=== PATIENT | female | born 1960 | race Caucasian/White ===

== ENCOUNTER 2016-07-07 21:05 | Inpatient (IN) | payer MEDICAID ==
[2016-07-07] MEDS ORDERED: DUONEB INH ONE ×4 (21:38→23:26)
[2016-07-07] MEDS ORDERED: METHYLPRED SOD SUCC 125 MG/2 ML VIAL ONE (21:42)
[2016-07-07] MEDS ORDERED: CEFTRIAXONE 1 GM VIAL ONE (22:47)
[2016-07-07] MEDS ORDERED: SODIUM CHLORIDE 0.9% 100 ML IV ONE (22:48)
[2016-07-08] VITALS (13 sets, daily range): BP systolic 98–144; RESP 16–23; TEMP 96.8–98.3; Wt 80.9 kg
[2016-07-08] MEDS ORDERED: GABAPENTIN 400 MG CAP PO PRN (00:15)
[2016-07-08] MEDS ORDERED: SALINE FLUSH 10 ML FLUSH PRN (00:15)
[2016-07-08] MEDS: METHYLPRED SOD SUCC 125 MG/2 ML VIAL IV SCH ×4 (00:15→23:34)
[2016-07-08] MEDS ORDERED: DOCUSATE SOD 100 MG CAP PO PRN (00:15)
[2016-07-08] MEDS ORDERED: DEXTROSE 50% SYRINGE 50 ML IV PRN (00:15)
[2016-07-08] MEDS ORDERED: GLUCAGON 1 MG VIAL IM PRN (00:15)
[2016-07-08] MEDS: SALINE FLUSH 10 ML FLUSH SCH ×3 (01:20→20:00)
[2016-07-08] MEDS: MDI-SPIRIVA 5 DOSES INH SCH ×3 (05:30→08:37)
[2016-07-08] MEDS: DUONEB INH SCH ×5 (05:30→18:22)
[2016-07-08] MEDS: LEVOTHYROXINE 0.05 MG TAB PO SCH (05:35)
[2016-07-08] MEDS: SODIUM CHLORIDE 0.9% FLUSH BAG 500 ML IV SCH ×2 (06:00→06:13)
[2016-07-08] MEDS: BUMETANIDE 1 MG TAB PO SCH (08:29)
[2016-07-08] MEDS: ESCITALOPRAM 10 MG TAB PO SCH (08:29)
[2016-07-09] VITALS (11 sets, daily range): BP systolic 112–158; RESP 16–20; TEMP 97.1–98.6
[2016-07-09] MEDS: DUONEB INH SCH ×7 (00:11→23:30)
[2016-07-09] MEDS: LEVOTHYROXINE 0.05 MG TAB PO SCH (05:36)
[2016-07-09] MEDS: SODIUM CHLORIDE 0.9% FLUSH BAG 500 ML IV SCH ×2 (05:36)
[2016-07-09] MEDS: MDI-SPIRIVA 5 DOSES INH SCH (08:28)
[2016-07-09] MEDS: ESCITALOPRAM 10 MG TAB PO SCH (08:48)
[2016-07-09] MEDS: METHYLPRED SOD SUCC 125 MG/2 ML VIAL IV SCH ×3 (08:48→23:36)
[2016-07-09] MEDS: BUMETANIDE 1 MG TAB PO SCH (08:48)
[2016-07-09] MEDS: SALINE FLUSH 10 ML FLUSH SCH ×2 (08:49→20:29)
[2016-07-09] MEDS: ENOXAPARIN 40 MG/0.4 ML SYR SUBQ SCH (13:34)
[2016-07-09] MEDS: BUMETANIDE 1 MG/4 ML VIAL IV SCH (16:55)
[2016-07-09] MEDS: NEB-BUDESONIDE 0.5 MG INH SCH (20:08)
[2016-07-09] MEDS: NEB-BROVANA 15 MCG/2 ML INH SCH (20:08)
[2016-07-09] MEDS ORDERED: ACETAMINOPHEN 325 MG TAB PO PRN (20:15)
[2016-07-09] MEDS: FAMOTIDINE 20 MG TAB PO SCH (20:28)
[2016-07-09] MEDS: Atorvastatin 10 MG TAB PO SCH (20:28)
[2016-07-09] MEDS: DOXYCYCLINE 100 MG TAB PO SCH (20:29)
[2016-07-09] MEDS ORDERED: LEVEMIR INSULIN SUBQ SCH (21:00)
[2016-07-10] VITALS (9 sets, daily range): BP systolic 102–124; RESP 16–22; TEMP 96.6–97.8
[2016-07-10] MEDS: DUONEB INH SCH ×6 (03:50→22:55)
[2016-07-10] MEDS: SODIUM CHLORIDE 0.9% FLUSH BAG 500 ML IV SCH ×2 (05:12)
[2016-07-10] MEDS: LEVOTHYROXINE 0.05 MG TAB PO SCH (06:06)
[2016-07-10] MEDS: NEB-BROVANA 15 MCG/2 ML INH SCH ×2 (08:04→19:05)
[2016-07-10] MEDS: NEB-BUDESONIDE 0.5 MG INH SCH ×2 (08:04→19:05)
[2016-07-10] MEDS: SALINE FLUSH 10 ML FLUSH SCH ×2 (08:18→20:08)
[2016-07-10] MEDS: METHYLPRED SOD SUCC 125 MG/2 ML VIAL IV SCH ×3 (08:18→23:56)
[2016-07-10] MEDS: ESCITALOPRAM 10 MG TAB PO SCH (08:19)
[2016-07-10] MEDS: FAMOTIDINE 20 MG TAB PO SCH ×2 (08:19→20:08)
[2016-07-10] MEDS: DOXYCYCLINE 100 MG TAB PO SCH ×2 (08:19→20:08)
[2016-07-10] MEDS: BUMETANIDE 1 MG/4 ML VIAL IV SCH ×2 (08:19→16:20)
[2016-07-10] MEDS: ENOXAPARIN 40 MG/0.4 ML SYR SUBQ SCH (08:19)
[2016-07-10] MEDS: MDI-SPIRIVA 5 DOSES INH SCH (08:30)
[2016-07-10] MEDS ORDERED: MISSING DOSE XX ONE (09:15)
[2016-07-10] MEDS: Atorvastatin 10 MG TAB PO SCH (20:08)
[2016-07-10] MEDS ORDERED: LEVEMIR INSULIN SUBQ SCH (21:00)
[2016-07-11] VITALS (7 sets, daily range): BP systolic 102–120; RESP 16–18; TEMP 96.5–98.2
[2016-07-11] MEDS: DUONEB INH SCH ×4 (02:32→15:00)
[2016-07-11] MEDS: SODIUM CHLORIDE 0.9% FLUSH BAG 500 ML IV SCH ×2 (05:46→05:47)
[2016-07-11] MEDS: LEVOTHYROXINE 0.05 MG TAB PO SCH (05:46)
[2016-07-11] MEDS: NEB-BUDESONIDE 0.5 MG INH SCH (07:34)
[2016-07-11] MEDS: NEB-BROVANA 15 MCG/2 ML INH SCH (07:34)
[2016-07-11] MEDS: METHYLPRED SOD SUCC 125 MG/2 ML VIAL IV SCH ×2 (08:20→17:06)
[2016-07-11] MEDS: SALINE FLUSH 10 ML FLUSH SCH (08:20)
[2016-07-11] MEDS: FAMOTIDINE 20 MG TAB PO SCH (08:21)
[2016-07-11] MEDS: DOXYCYCLINE 100 MG TAB PO SCH (08:21)
[2016-07-11] MEDS: BUMETANIDE 1 MG/4 ML VIAL IV SCH ×2 (08:21→17:06)
[2016-07-11] MEDS: ESCITALOPRAM 10 MG TAB PO SCH (08:21)
[2016-07-11] MEDS: ENOXAPARIN 40 MG/0.4 ML SYR SUBQ SCH (08:22)
== END 2016-07-11 18:39 | disposition home or self-care (01) | DRG 189 ==
LOC: ENRESERVDT → ENRESERVTM → ENRESERV → ER 21:05 → ENPENDDIS 07-08 00:14 → EMR 07-08 00:14 → 4THW 07-08 01:07
PROVIDERS: ADMIT Hospitalist; ATTEND Hospitalist
DX: J96.22 Acute and chronic respiratory failure with hypercapnia (principal); I50.33 Acute on chronic diastolic (congestive) heart failure; J18.9 Pneumonia, unspecified organism; E11.40 Type 2 diabetes mellitus with diabetic neuropathy, unspecified; I11.0 Hypertensive heart disease with heart failure; J44.1 Chronic obstructive pulmonary disease with (acute) exacerbation; J44.0 Chronic obstructive pulmonary disease with (acute) lower respiratory infection; J96.21 Acute and chronic respiratory failure with hypoxia; Z91.19 Patient's noncompliance with other medical treatment and regimen; Z72.0 Tobacco use; E11.65 Type 2 diabetes mellitus with hyperglycemia; K21.9 Gastro-esophageal reflux disease without esophagitis; Z86.711 Personal history of pulmonary embolism; E78.5 Hyperlipidemia, unspecified; Z79.51 Long term (current) use of inhaled steroids
CPT/HCPCS: 36415; 36600; 71010; 80048; 80053; 82553; 82803; 82947; 83605; 83880; 84484; 85025; 85379; 87040; 87278; 87299; 87804; 93005; 94640; 94660; 94762; 96361; 96365; 96367; 96375; 99222; 99233